=== PATIENT | female | born 1965 | race Caucasian/White ===

== ENCOUNTER → 2017-05-25 | Outpatient (CLI) | payer MEDICARE, OTHER ==
--- NOTE | 2017-05-25 18:40 | CONS ---
CONSULTATION DATE OF SERVICE: 05/25/2017 HISTORY: This 52-year-old lady has been re-evaluated in the sleep center for obstructive sleep apnea-hypopnea syndrome. HISTORY OF PRESENT ILLNESS/SLEEP WAKE EVALUATION: Last time I saw the patient was more than 3 years ago. At that time, she was on treatment with BiPAP with a pressure of 12/8 cm of water and she continued to use her treatment every night. Her sleep schedule is in the range from midnight until about 5:45 a.m. No snoring with the machine. She wakes 3 times with nocturia. During the day sometimes she feels sleepy and tired. [place] Sleepiness Scale is 13. Her weight is about the same, 253 pounds, comparing with her weight in 2013 when I saw her last time. I checked her CPAP unit and it showed that she is using equipment 30/30 nights with a average usage is 6.6 hours. Subsequently, she demonstrated 100% compliance with the treatment. PAST MEDICAL HISTORY: Positive for asthma, arthritis, low back pain, right leg sciatic nerve problems. PAST SURGICAL HISTORY: in 2001. MEDICATIONS: Spiriva, hydrocodone, ibuprofen. SOCIAL HISTORY: Positive for smoking less than 1 pack a day for 38 years, patient continues to smoke. Alcohol consumption none at all in her life. REVIEW OF SYSTEMS: Nocturia, sometimes tiredness and sleepiness during the day. FAMILY HISTORY: Hypertension, hyperlipidemia, arthritis, asthma, bronchitis, lung problems, sleep apnea, snoring, diabetes, during sleep. PHYSICAL EXAMINATION: GENERAL: A 62-year-old lady without distress. VITAL SIGNS: BP 131/55, HR 90, RR 16, height 5 feet and 0 inches, weight 253, BMI 49.4. Neck 18-3/4 inch in circumference. Temp 98.4. Oxygen saturation at room air 91%. Oropharynx extremely low position of soft palate. ABDOMEN: Obese. EXTREMITIES: Very minimal, up to 1+ ankle edema. The rest of the physical is normal. IMPRESSION: 1. Obstructive sleep apnea-hypopnea syndrome. Patient demonstrated 100% compliance with treatment, benefitting from treatment. 2. Nocturia. 3. Sometimes slight excessive daytime sleepiness. 4. Obesity. No significant changes of weight for the last 4 years. 5. Asthma. 6. Low back pain. 7. Sciatic nerve problem on right leg. 8. History of arthritis. PLAN: 1. Continue treatment with BiPAP presently with a pressure of 12/8 cm of water, every night for the whole night as the patient is doing now. 2. Losing weight. 3. Smoking cessation program. 4. No driving if feeling sleepiness. 5. We will consider to replace the patient's BiPAP unit, after 5 years of usage of machine we will check if it is available because I cannot get information from the machine about the patient's breathing during the sleep and with a new unit I should be able to get all of this information. 6. Prescription for all necessary BiPAP supplies, including mask, tube, filters. 7. No driving if feeling sleepiness. Thank you very much for allowing me to participate in management of your patient. Sincerely, Omar Kang MD, PhD, FAASM Diplomat of [place] Board of Medical Specialties [place] Board of Internal Medicine Chronic Disease Epidemiologist of [facility] [place] MMODL / SUYAPAN: [id number] /
== END | disposition home or self-care (01) ==

== ENCOUNTER → 2018-10-03 | Outpatient (CLI) | payer MEDICARE, OTHER ==
--- NOTE | 2018-10-03 17:43 | PN ---
PROGRESS NOTE DATE OF SERVICE: 10/03/2018 53-year-old lady who has been followed in Sleep Center for treatment of obstructive sleep apnea-hypopnea syndrome. The patient continued to use her BiPAP equipment every night for the whole night. Sometimes her machine stopped working at night and she has to restart it again and she is scared that machine will not work. No snoring with the machine. Her [place] Sleepiness Scale today is 12. I checked her BiPAP unit. Usage is 30/30 nights for more than 4 hours. Average usage is 7.3 hours. BiPAP pressure is 12/8 cm of water. Machine does not have information about apnea-hypopnea index. MEDICATIONS: Spiriva and Ventolin, hydrocodone, ibuprofen. PHYSICAL EXAM: Patient in no distress, BP 135/72, HR 84, RR 16, height 5 feet, weight 249 pounds. Body mass index 48.6, temperature 97.5, oxygen saturation at room air 98%. HEENT: PERRLA, EOMI. Oropharynx extremely low position of soft palate. ABDOMEN: Obese. Neck Supple, no JVD. Thyroid is not palpable. LUNGS Clear to percussion and to auscultation. Good air exchange. No wheezing or rhonchi. HEART S1, S2 regular. No murmurs, gallops, or rubs. ABDOMEN: Obese. Soft and nontender. Bowel sounds are present. No organomegaly appreciated. EXTREMITIES No clubbing or cyanosis. FORENSIC CHEMIST Awake, alert, and oriented X3. Cranial nerves 2 to 7 intact. There is no fasciculation or atrophy. noted. No focal deficits observed. IMPRESSION: 1. Obstructive sleep apnea-hypopnea syndrome. Patient demonstrated 100% compliance with treatment, benefitting from treatment. 2. CPAP unit is old, sometimes stops working at night. 3. Asthma. 4. Obesity. 5. Low back problems. 6. Sciatic nerve problem on the right leg. 7. Arthritis. PLAN: 1. Prescription to replace BiPAP unit. 2. Losing weight. 3. Sleep hygiene with regular time in bed for at least 8 hours. 4. No driving if feeling any sleepiness. 5. Will maintain prescription for all necessary BiPAP supplies including nasal mask, Mirage FX small and tube filters. Thank you very much for allowing me to participate in management of your patient. Sincerely, Omar Kang MD, PhD, FAASM Diplomat of [place] [employer] Medical Specialties [place] Board of Internal Medicine Blood Bank Worker of [facility] [place] MMODL / SUYAPAN: [id number] /
== END ==
LOC: SLEEP 15:32
PROVIDERS: ATTEND Internal Medicine
DX: G47.33 Obstructive sleep apnea (adult) (pediatric) (principal); J45.909 Unspecified asthma, uncomplicated; E66.9 Obesity, unspecified; M54.89 Other dorsalgia; M19.90 Unspecified osteoarthritis, unspecified site; Z99.89 Dependence on other enabling machines and devices; Z79.899 Other long term (current) drug therapy; Z79.891 Long term (current) use of opiate analgesic; Z79.1 Long term (current) use of non-steroidal anti-inflammatories (NSAID)

== ENCOUNTER → 2020-09-17 | Outpatient (CLI) | payer MEDICARE, OTHER ==
--- NOTE | 2020-09-17 22:38 | SFUN ---
SLEEP CENTER FOLLOW UP NOTE DATE OF SERVICE: 09/17/2020 A 55-year-old lady has been followed in Sleep Center with a telemedicine for treatment of obstructive sleep apnea-hypopnea syndrome. Recently, patient had a home sleep apnea test which showed severe sleep apnea with apnea-hypopnea index 77.4, and oxygen desaturation to 73%, and then patient received her BiPAP equipment and today is his first visit after she started treatment with new BiPAP machine. The patient likes her new machine. She is using it every night and the only problem which she has is slightly too high level of humidity. She feels too much water in the mask. [place] Sleepiness Scale today is zero. I checked reading from her BiPAP machine. BiPAP pressure 12/8 cm of water. Patient using BiPAP equipment 100% of the nights, more than 4 hours. Average usage 8 hours 22 minutes. Apnea-hypopnea index 0.4, which is perfect, 95%. Leak is 8.5, which is normal range. MEDICATIONS: Spiriva, Ventolin, ibuprofen. I observed the patient through the video call. The patient speaks well. No asymmetry of the face. IMPRESSION: 1. Severe obstructive sleep apnea-hypopnea syndrome; apnea-hypopnea index 77.4 with oxygen desaturation to 73%. The patient demonstrated 100% compliance with treatment benefitting from treatment. 2. Obesity. 3. Asthma. 4. Low back problems. 5. Sciatic nerve problems in the right leg. PLAN: 1. Patient will continue to use PAP equipment every night for the whole night. 2. Sleep hygiene with regular time in bed for at least 7-1/2 to 8 hours. 3. Precautions related to driving. No driving if feeling sleepiness. 4. I will maintain all necessary prescription for PAP supplies including mask, tube, filters. 5. Watching weight. 6. No driving if feeling sleepiness. 7. Follow-up visit in 6 months or earlier if patient has any problems. Thank you very much for allowing me to participate in management of your patient. Sincerely, Omar Kang MD, PhD, FAASM Diplomat of [place] [employer] of Medical Specialties [place] Board of Internal Medicine Director Of Operations For Therapy of [facility] [place] MMODL / SUYAPAN: [id number] /
== END | disposition home or self-care (01) ==
LOC: SLEEP 14:36
PROVIDERS: ATTEND Internal Medicine
DX: G47.33 Obstructive sleep apnea (adult) (pediatric) (principal); E66.9 Obesity, unspecified; J45.909 Unspecified asthma, uncomplicated; M53.9 Dorsopathy, unspecified; M54.31 Sciatica, right side; Z99.89 Dependence on other enabling machines and devices; Z79.891 Long term (current) use of opiate analgesic; Z79.899 Other long term (current) drug therapy

== ENCOUNTER → 2020-12-21 | Outpatient (CLI) | payer MEDICARE, OTHER ==
--- NOTE | 2020-12-21 10:57 | US ---
EXAMINATION TYPE: US pelvic complete DATE OF EXAM: 12/21/2020 COMPARISON: NONE CLINICAL HISTORY: R10.2 female pelvic pain. Pain patient refused transvaginal exam. Limitations due t o body habitus. TECHNIQUE: Transabdominal (TA). EXAM MEASUREMENTS: Uterus: 11.4 x 5.9 x 6.5 cm Endometrial Stripe: Not well visualized 1. Uterus: Anteverted Limited 2. Endometrium: Not well visualized. 3. Right Ovary: Obscured by overlying bowel gas 4. Left Ovary: Obscured by overlying bowel gas 5. Bilateral Adnexa: wnl 6. Posterior cul-de-sac: wnl IMPRESSION: No significant abnormality is seen
== END | disposition home or self-care (01) ==
LOC: RADUSWWP 10:09
PROVIDERS: ATTEND Family Medicine
DX: R10.2 Pelvic and perineal pain (principal)
CPT/HCPCS: 76856

== ENCOUNTER → 2022-04-27 | Outpatient (CLI) | payer MEDICARE, OTHER ==
--- NOTE | 2022-04-27 11:22 | P.PN ---
Subjective DATE: 0 04/27 2022 FOLLOW UP VISIT. Patient with obstructive sleep apnea hypopnea syndrome return to sleep center for follow-up visit. Previous visit about 1-1/2 year ago. Information from previous visit have been reviewed. Patient is using PAP equipment every night for the whole night, getting PAP supplies in time. The patient does not have significant problems with the mask, PAP unit and humidification. [place] sleepiness scale is 6. I checked BIPAP unit. Air filter needs to be changed immediately. BIPAP unit pressure 12/8 cm H2O. Usage is 100 % for more then 4 hours, average 8.2 hours per night. Leak is 6 l/m, which is in acceptable range. Apnea Hypopnea Index is 0.1, which is perfect. MEDICATIONS:1. Hydrocodone 2. Spiriva 3. Ventolin 4. Ibuprofen 5. Loteprednol During physical exam: GENERAL: A pleasant patient without any distress. VITAL SIGNS: BP 187/84, HR 99, RR 18 , weight 363.2, temperature 97.4, oxygen saturation at room air 84 % . HEENT: PERRLA, EOMI.low position of soft palate. . NECK: Supple. No JVD. LUNGS: Clear to percussion and to auscultation. Good air exchange. No wheezing or rhonchi. HEART: S1, S2 regular. ABDOMEN: Soft and nontender. Obese EXTREMITIES: No clubbing or cyanosis. ENGINEERING ASSOCIATE: Awake, alert, and oriented x3. No focal deficit. Impressions: 1. Obstructive sleep apnea-hypopnea syndrome. Patient demonstrated great compliance with treatment, benefiting from treatment. 2. Obesity. 3. Asthma. 4. Low back problems. 5. History of sciatic nerve problems on the right side. Plan: 1. Continue using PAP equipment every night for the whole night. 2. To change air filter at least 1-2 times per month. 3. PAP unit should stay lower then position of the head. 4. Advised patient to remove all remaining water from humidifier canister daily and make it dry after each usage. Refill canister with fresh distilled water before each usage. 5. Sleep hygiene with regular time in bed for at least 8 hours. 6. Precautions related to driving. No driving if feel any sleepiness. 7. I will maintain prescription for PAP supplies including mask, tube, filters. 8. Follow up visit in 6 months or earlier if patient has any problems. 9. Watching and losing weight. Thank you very much for allowing me to participate in the management of your patient. Omar Kagn MD, PhD, FAASM. Diplomat of [place] Board of Sleep Medicine, Sleep Medicine Board by [place] Board of Internal Medicine Machine Operators of [facility] [place]
== END ==
LOC: SLEEP 10:47
PROVIDERS: ATTEND Internal Medicine
DX: G47.33 Obstructive sleep apnea (adult) (pediatric) (principal); E66.9 Obesity, unspecified; J45.909 Unspecified asthma, uncomplicated; M53.86 Other specified dorsopathies, lumbar region; Z87.39 Personal history of other diseases of the musculoskeletal system and connective tissue; Z99.89 Dependence on other enabling machines and devices
CPT/HCPCS: 99212

== ENCOUNTER 2024-01-19 12:03 | Inpatient (IN) | payer MEDICARE, OTHER ==
--- NOTE | 2024-01-19 12:56 | ED ---
General Adult HPI - General Chief complaint: Shortness of Breath Stated complaint: SEBASTIAN,throat pain Time Seen by Provider: 01/19/24 12:31 Source: patient Mode of arrival: ambulatory Limitations: no limitations - History of Present Illness Initial comments: Dictation was produced using [employer] dictation software. please excuse any grammatical, word or spelling errors. Chief Complaint: 58-year-old female with COPD presents to the ER for hypoxia History of Present Illness: Patient is a 58-year-old female presents to the ER for hypoxia. She was at her primary care physician's office for a few days of left ear pain and throat pain. Patient states that she was seen there and found to be hypoxic. Patient denies any shortness of breath. Patient has chronic COPD she does not wear home oxygen. She feels like her breathing is normal baseline. Denies any fever, chills or night sweats. No cough. The ROS documented in this emergency department record has been reviewed and confirmed by me. Those systems with pertinent positive or negative responses have been documented in the HPI. All other systems are other negative and/or noncontributory. - Related Data Home Medications Medication Instructions Recorded Confirmed Albuterol Sulfate [Albuterol 2 puff PO RT-Q6H PRN 01/19/24 01/19/24 Sulfate Hfa] Bisoprolol-Hctz 5-6.25 mg [Ziac 1 tab PO DAILY 01/19/24 01/19/24 5-6.25 MG] Budesonide/Glycopyr/Formoterol 2 puff INHALATION RT-BID 01/19/24 01/19/24 [Breztri Aerosphere Inhaler] HYDROcodone/APAP 7.5-325MG [[place] 1 tab PO TID 01/19/24 01/19/24 7.5-325] Ibuprofen [Motrin] 800 mg PO TID PRN 01/19/24 01/19/24 Rosuvastatin [Crestor] 10 mg PO HS 01/19/24 01/19/24 Allergies Allergy/AdvReac Type Severity Reaction Status Date / Time No Known Allergies Allergy Verified 01/19/24 13:27 Review of Systems ROS Statement: Those systems with pertinent positive or pertinent negative responses have been documented in the HPI. ROS Other: All systems not noted in ROS Statement are negative. Past Medical History Past Medical History: COPD History of Any Multi-Drug Resistant Organisms: None Reported Past Surgical History: No Surgical Hx Reported Past Psychological History: No Psychological Hx Reported Smoking Status: Current every day smoker Past Alcohol Use History: None Reported Past Drug Use History: None Reported, Marijuana General Exam - General Exam Comments Initial Comments: PHYSICAL EXAM: General Impression: Alert and oriented x3, not in acute distress HEENT: Normocephalic atraumatic, extra-ocular movements intact, pupils equal and reactive to light bilaterally, mucous membranes moist, left middle ear effusion, shallow-based ulcers to the posterior oropharynx with erythema Cardiovascular: Heart regular rate and rhythm Chest: Able to complete full sentences, no retractions, no tachypnea Abdomen: abdomen soft, non-tender, non-distended, no organomegaly Musculoskeletal: Pulses present and equal in all extremities, no peripheral edema Motor: no focal deficits noted Neurological: CN II-XII grossly intact, no focal motor or sensory deficits noted Skin: Intact with no visualized rashes Psych: Normal affect and mood Limitations: no limitations Course Vital Signs 01/19/24 01/19/24 01/19/24 12:25 12:44 12:48 Temperature 99.4 F Pulse Rate 80 82 Respiratory 22 20 20 Rate Blood Pressure 156/70 167/98 O2 Sat by Pulse 84 L 92 L Oximetry 01/19/24 01/19/24 14:00 15:44 Temperature Pulse Rate 74 73 Respiratory 18 18 Rate Blood Pressure 150/78 151/85 O2 Sat by Pulse 95 96 Oximetry EKG Findings - EKG Comments: EKG Findings:: My EKG interpretation: Ventricular rate 76, sinus rhythm,. 187, cures 91, QTc 410. No DC prolongation, no QTC prolongation. No old EKG for comparison. There does appear to be T wave inversions in inferior leads and anterior septal leads Medical Decision Making - Medical Decision Making Was pt. sent in by a medical professional or institution (, PA, ORTHOPEDIC DENTIST, urgent care, hospital, or penitentiary...) When possible be specific @ -Sent in from primary care physician's office Did you speak to anyone other than the patient for history (EMS, parent, family, police, friend...)? What history was obtained from this source @ -No Did you review nursing and triage notes (agree or disagree)? Why? @ -I reviewed and agree with nursing and triage notes Were old charts reviewed (outside hosp., previous admission, EMS record, old EKG, old radiological studies, urgent care reports/EKG's, penitentiary records)? Report findings @ -No old charts were reviewed Differential Diagnosis (chest pain, altered mental status, abdominal pain women, abdominal pain men, vaginal bleeding, musculoskeletal, weakness, fever, dyspnea , syncope, headache, dizziness, GI bleed, back pain, seizure, CVA, palpatations, mental health)? @ -Differential Dyspnea: Coronary syndrome, arrhythmia, tamponade, asthma, COPD, pulmonary embolism, pneumonia, pneumothorax, pulmonary effusion, anaphylaxis, diabetic ketoacidosis, flailed chest, pulmonary contusion, diaphragmatic rupture, anemia, neuromuscular, this is not meant to be an all-inclusive list. EKG interpreted by me (3pts min.). @ -See above X-rays interpreted by me (1pt min.). @ -Two-view chest x-ray shows no acute processes CT interpreted by me (1pt min.). @ -None done U/S interpreted by me (1pt. min.). @ -None done What testing was considered but not performed or refused? (CT, X-rays, U/S, labs)? Why? @ -None What meds were considered but not given or refused? Why? @ -None Did you discuss the management of the patient with other professionals (professionals i.e. , PA, ORTHOPEDIC DENTIST, lab, RT, psych nurse, health and social care teacher, yard coordinator, teacher, certification officer, family preservation caseworker)? Give summary @ -Case discussed with hospitalist for admission Was smoking cessation discussed for >3mins.? @ -No Was critical care preformed (if so, how long)? @ -No Were there social determinants of health that impacted care today? How? (Homelessness, low income, unemployed, alcoholism, drug addiction, transportation, low edu. Level, literacy, decrease access to med. care, detention, rehab)? @ -No Was there de-escalation of care discussed even if they declined (Discuss DNR or withdrawal of care, Hospice)? DNR status @ -No What co-morbidities impacted this encounter? (DM, HTN, Smoking, COPD, CAD, Cancer, CVA, ARF, Chemo, Hep., AIDS, mental health diagnosis, sleep apnea, morbid obesity)? @ -None Was patient admitted / discharged? Hospital course, mention meds given and route, prescriptions, significant lab abnormalities, going to OR and other pertinent info. @ -58-year-old female presents to the emergency department from primary care physician's office for hypoxic respiratory failure. She initially presented there for ear and throat complaints. Patient has otitis media to the left ear. She does have some shallow-based ulcers to the posterior oropharynx likely viral in origin. Labs obtained. Labs are unremarkable. Patient has a nonnegative troponin of 0.015. This may be related to her hypoxia. Viral testing is negative. Rapid strep is negative. Chest x-ray is nonacute. P atient be admitted consultation pulmonology. Undiagnosed new problem with uncertain prognosis? @ -No Drug Therapy requiring intensive monitoring for toxicity (Heparin, Nitro, Insulin, Cardizem)? @ -No Were any procedures done? @ -No Diagnosis/symptom? Acute, or Chronic, or Acute on Chronic? Uncomplicated (without systemic symptoms) or Complicated (systemic symptoms)? @ -Hypoxia Side effects of treatment? @ -No Exacerbation, Progression, or Severe Exacerbation? @ -No Poses a threat to life or bodily function? How? (Chest pain, [place], [place], pneumonia, PE, COPD, DKA, ARF, appy, cholecystitis, CVA, Diverticulitis, Homicidal, Suicidal, threat to staff... and all critical care pts) @ -yes - Lab Data Result diagrams: 01/19/24 12:56 01/19/24 13:52 Lab Results 01/19/24 01/19/24 01/19/24 Range/Units 12:56 12:56 12:56 WBC 9.2 (3.8-10.6) k/uL RBC 5.20 (3.80-5.40) m/uL Hgb 17.1 H (11.4-16.0) gm/dL Hct 52.3 H (34.0-46.0) % MCV 100.6 H (80.0-100.0) fL MCH 33.0 (25.0-35.0) pg MCHC 32.8 (31.0-37.0) g/dL RDW 12.8 (11.5-15.5) % Plt Count 163 (150-450) k/uL MPV 8.5 Neutrophils % 81 % Lymphocytes % 11 % Monocytes % 5 % Eosinophils % 1 % Basophils % 1 % Neutrophils # 7.5 (1.3-7.7) k/uL Lymphocytes # 1.0 (1.0-4.8) k/uL Monocytes # 0.4 (0-1.0) k/uL Eosinophils # 0.1 (0-0.7) k/uL Basophils # 0.1 (0-0.2) k/uL Manual Slide Review Performed RBC Morphology Normal D-Dimer (<0.60) mg/L FEU Sodium (137-145) mmol/L Potassium (3.5-5.1) mmol/L Chloride (98-107) mmol/L Carbon Dioxide (22-30) mmol/L Anion Gap mmol/L BUN (7-17) mg/dL Creatinine (0.52-1.04) mg/dL Est GFR (CKD-EPI)AfAm (>60 ml/min/1.73 sqM) Est GFR (CKD-EPI)NonAf (>60 ml/min/1.73 sqM) Glucose (74-99) mg/dL Calcium (8.4-10.2) mg/dL Total Bilirubin (0.2-1.3) mg/dL AST (14-36) U/L ALT (4-34) U/L Alkaline Phosphatase (38-126) U/L Troponin I (0.000-0.034) ng/mL Total Protein (6.3-8.2) g/dL Albumin (3.5-5.0) g/dL Influenza Type A (PCR) Not Detected (Not Detectd) Influenza Type B (PCR) Not Detected (Not Detectd) RSV (PCR) Not Detected (Not Detectd) SARS-CoV-2 (PCR) Not Detected (Not Detectd) Group A Strep (PCR) NOT DETECTED (Not Detectd) 01/19/24 01/19/24 01/19/24 Range/Units 13:52 13:52 13:52 WBC (3.8-10.6) k/uL RBC (3.80-5.40) m/uL Hgb (11.4-16.0) gm/dL Hct (34.0-46.0) % MCV (80.0-100.0) fL MCH (25.0-35.0) pg MCHC (31.0-37.0) g/dL RDW (11.5-15.5) % Plt Count (150-450) k/uL MPV Neutrophils % % Lymphocytes % % Monocytes % % Eosinophils % % Basophils % % Neutrophils # (1.3-7.7) k/uL Lymphocytes # (1.0-4.8) k/uL Monocytes # (0-1.0) k/uL Eosinophils # (0-0.7) k/uL Basophils # (0-0.2) k/uL Manual Slide Review RBC Morphology D-Dimer 0.55 (<0.60) mg/L FEU Sodium 133 L (137-145) mmol/L Potassium 4.3 (3.5-5.1) mmol/L Chloride 99 (98-107) mmol/L Carbon Dioxide 30 (22-30) mmol/L Anion Gap 4 mmol/L BUN 15 (7-17) mg/dL Creatinine 0.53 (0.52-1.04) mg/dL Est GFR (CKD-EPI)AfAm >90 (>60 ml/min/1.73 sqM) Est GFR (CKD-EPI)NonAf >90 (>60 ml/min/1.73 sqM) Glucose 113 H (74-99) mg/dL Calcium 8.9 (8.4-10.2) mg/dL Total Bilirubin 1.3 (0.2-1.3) mg/dL AST 19 (14-36) U/L ALT 8 (4-34) U/L Alkaline Phosphatase 98 (38-126) U/L Troponin I 0.015 (0.000-0.034) ng/mL Total Protein 7.0 (6.3-8.2) g/dL Albumin 3.9 (3.5-5.0) g/dL Influenza Type A (PCR) (Not Detectd) Influenza Type B (PCR) (Not Detectd) RSV (PCR) (Not Detectd) SARS-CoV-2 (PCR) (Not Detectd) Group A Strep (PCR) (Not Detectd) Disposition Clinical Impression: Hypoxia Disposition: ADMITTED IP TO THIS [facility] Condition: Fair Referrals: Edward Reddy MD [Primary Care Provider] - 1-2 days Decision Time: 15:59
[2024-01-19 13:44] LABS: Basophils # (A) 0.1 k/uL (0-0.2); Basophils % (A) 1 %; Eosinophils # (A) 0.1 k/uL (0-0.7); Eosinophils % (A) 1 %; HCT 52.3 % (34.0-46.0); HGB 17.1 gm/dL (11.4-16.0); Lymphocytes % (A) 11 %; MCHC 32.8 g/dL (31.0-37.0); MCV 100.6 fL (80.0-100.0); Mean Platelet Volume 8.5; Monocytes # (A) 0.4 k/uL (0-1.0); Monocytes % (A) 5 %; Neutrophils # (A) 7.5 k/uL (1.3-7.7); Neutrophils % (A) 81 %; Platelet Count 163 k/uL (150-450); RDW 12.8 % (11.5-15.5); WBC 9.2 k/uL (3.8-10.6)
[2024-01-19] MEDS: AZITHROMYCIN 500 MG in SODIUM CHLORIDE 0.9% 250 ML IVPB STA ×2 (13:52→14:19)
[2024-01-19 14:08] LABS: RBC Morphology Normal
[2024-01-19 14:13] LABS: ALT 8 U/L (4-34); AST 19 U/L (14-36); African American GFR (CKD) >90 (>60 ml/min/1.73 sqM); Albumin 3.9 g/dL (3.5-5.0); Alkaline Phosphatase 98 U/L (38-126); Anion Gap 4 mmol/L; Blood Urea Nitrogen 15 mg/dL (7-17); Calcium 8.9 mg/dL (8.4-10.2); Carbon Dioxide 30 mmol/L (22-30); Chloride 99 mmol/L (98-107); Glucose 113 mg/dL (74-99); Non-African American GFR(CKD) >90 (>60 ml/min/1.73 sqM); Potassium 4.3 mmol/L (3.5-5.1); Sodium 133 mmol/L (137-145); Total Bilirubin 1.3 mg/dL (0.2-1.3)
[2024-01-19] MEDS: cefTRIAXone IN SWFI 1,000 MG/10 ML SYRINGE IVP STA (14:19)
[2024-01-19] MEDS: AZITHROMYCIN 500 MG TAB PO STA (14:19)
--- NOTE | 2024-01-19 14:53 | XR ---
EXAMINATION TYPE: XR chest 2V DATE OF EXAM: 01/19/2024 COMPARISON: None INDICATION: Hypoxia TECHNIQUE: Frontal and lateral views of the chest are obtained. FINDINGS: The heart size is enlarged. The pulmonary vasculature is normal. The lungs are clear. IMPRESSION: 1. No acute pulmonary process.
[2024-01-19] MEDS: MAG HYDROX/AL HYDROX/SIMETH 30 ML, HYOSCYAMINE ELIXIR 10 ML, LIDOCAINE VISCOUS 2% 10 ML PO STA (15:55)
[2024-01-19] MEDS ORDERED: IPRATROPIUM-ALBUTEROL 3 ML NEB INHALATION PRN (17:28)
[2024-01-19] MEDS ORDERED: DEXTROSE 50% SYRINGE 50 ML IVP PRN ×2 (17:29)
[2024-01-19] MEDS: INSULIN ASPART (NovoLOG) 100 UNIT/ML VIAL SQ SCH (18:28)
[2024-01-19 18:29] LABS: Glucose,Whole Blood 117 mg/dL (70-110)
[2024-01-19] MEDS: methylPREDNISolone SOD SUCCI 125 MG/2 ML VIAL IV SCH (18:43)
[2024-01-19] MEDS: SYMBICORT 160-4.5 MCG INHALER INHALATION SCH (20:02)
[2024-01-19] MEDS: IPRATROPIUM-ALBUTEROL 3 ML NEB INHALATION SCH (20:02)
[2024-01-19 21:05] LABS: Glucose,Whole Blood 143 mg/dL (70-110)
[2024-01-19] MEDS: ATORVASTATIN 20 MG TAB PO SCH (21:35)
[2024-01-19] MEDS: HYDROcodone/APAP 7.5-325MG 1 EACH TAB PO SCH (21:35)
[2024-01-19] MEDS: HEPARIN SODIUM,PORCINE 5,000 UNIT/ML 1 ML VIAL SQ SCH (21:36)
--- NOTE | 2024-01-19 23:45 | HP ---
HISTORY AND PHYSICAL CHIEF COMPLAINT: Shortness of breath. HISTORY OF PRESENT ILLNESS: This 58-year-old woman with past medical history of multiple medical problems including COPD, being followed by Dr. Reddy in the outpatient, was admitted with severe shortness of breath as well as hypoxia. The patient has some left ear pain and throat pain, and the patient was found to be hypoxic in primary care physician's office and referred to [facility]. The evaluation showed pulse ox 84% on room air, and the patient was admitted for further evaluation and treatment. There is no history of any fever, rigors, or chills at this time. PAST MEDICAL HISTORY: Reviewed include COPD, rest of the history and rest of the chart is also reviewed. HOME MEDICATIONS: Reviewed include albuterol, doses and rest of medications noted. ALLERGIES: None. FAMILY HISTORY: No history of heart disease or strokes in the family. SOCIAL HISTORY: Current smoking, THC. REVIEW OF SYSTEMS: A 14-point review is negative except as mentioned earlier. PHYSICAL EXAMINATION: VITAL SIGNS: Pulse is 74, blood pressure 150/70, respirations 18. HEENT: Conjunctivae normal. NECK: No jugular venous distention. CARDIOVASCULAR: S1, S2. RESPIRATIONS: Diminished at the bases, scattered rhonchi and crackles. ABDOMEN: Soft, nontender. LEGS: No edema. No swelling. NERVOUS SYSTEM: No focal deficit. SKIN: No ulcer, rash, bleeding. JOINTS: No active deforming arthropathy. LABORATORY DATA: Noted. Troponins are normal. Sodium 133. D-dimer is also normal. ASSESSMENT: 1. Shortness of breath with COPD acute exacerbation with acute hypoxic respiratory failure. 2. Possible obesity hypoventilation syndrome. 3. Continued nicotine dependence. 4. History of THC. 5. Polycythemia, mild. 6. Hyponatremia. RECOMMENDATIONS AND DISCUSSION: This 58-year-old woman admitted with multiple complex medical issues, we will monitor the patient closely. Recommended empiric antibiotics as well as pulmonary consultation, intensive bronchodilators, steroids, resume the home medications once they are confirmed. Prognosis is guarded because of multiple complex medical issues. Further recommendations to follow, see orders for further details. MMODL / IJN: [id number] /
[2024-01-20] MEDS: PANTOPRAZOLE 40 MG TABLET PO SCH (05:46)
[2024-01-20 06:31] LABS: Glucose,Whole Blood 154 mg/dL (70-110)
[2024-01-20] MEDS: BISOPROLOL-HCTZ 5-6.25 MG 1 EACH TAB PO SCH (09:14)
[2024-01-20] MEDS: NICOTINE 14MG/24HR PATCH TRANSDERM SCH (09:14)
[2024-01-20] MEDS: AZITHROMYCIN 500 MG TAB PO SCH (09:14)
[2024-01-20 10:34] LABS: Chol/HDL Ratio 5.07 Ratio; LDL Cholesterol,Calculated 93.2 mg/dL (0.0-131.0)
[2024-01-20] MEDS: cefTRIAXone 1,000 MG VIAL (IM USE) IM SCH (11:30)
[2024-01-20 11:37] LABS: Glucose,Whole Blood 168 mg/dL (70-110)
--- NOTE | 2024-01-20 14:16 | PN ---
PROGRESS NOTE DATE OF SERVICE: 01/20/2024 SUBJECTIVE: This is a 58-year-old woman, who was admitted with COPD acute exacerbation with acute hypoxic respiratory failure, is being closely monitored. No chest pain. No palpitations. No fever. Oxygenation is improving. OBJECTIVE: VITAL SIGNS: Pulse is 81, blood pressure 119/60, and respirations 16. CHEST: Few scattered rhonchi. ABDOMEN: Soft. NERVOUS SYSTEM: Nonfocal. LABORATORY DATA: Noted. ASSESSMENT: 1. Chronic obstructive pulmonary disease acute exacerbation with acute hypoxic respiratory failure. 2. Possible obesity hypoventilation syndrome. 3. Normal D-dimer. 4. Continued nicotine dependence. 5. History of THC. 6. Mild polycythemia. 7. Hyponatremia. RECOMMENDATIONS: Recommend to continue current medical management and symptomatic treatment. Otherwise, at this time, I would recommend continue the bronchodilators, steroids, and empiric antibiotics. Pulmonary consultation. Repeat labs will be ordered in the morning. Prognosis guarded. Further condition to follow. MMODL / IJN: [id number] /
--- NOTE | 2024-01-20 14:39 | P.CNPUL ---
History of Present Illness Consult date: 01/20/24 Reason for consult: dyspnea History of present illness: 01/20/2024, this patient is being seen in consultation for shortness of breath. She is a morbidly obese 50-year-old female patient with known history of obstructive sleep apnea and the patient is being treated with a BiPAP on outpatient basis at a pressure of 12 over 8 cm of water. She is a chronic smoker and she is also known to have COPD. She is not oxygen dependent. She was diagnosed having obstructive sleep apnea many years back and she has been very compliant to her BiPAP therapy over the years. She has chronic back pain and sciatica. She presented to the hospital because of worsening shortness of breath. No chest pain. Limited cough and sputum production. The viral screen was negative. She was having some left ear pain and drainage and along with that she was having sore throat. That the streptococcal oral swab came back negative. The white cell count is at five 9.2 with a hemoglobin 17 and a platelet count of 164. BUN is at 50 with a creatinine of 0.5 and a sodium levels at 133. Reviewed the chest x-ray and it shows no acute cardiopulmonary process. Currently she is on oxygen 2 L with a pulse ox of 95%. Afebrile. Hemodynamically stable. No headaches. No neck stiffness. She has been maintained on Breztri on outpatient basis regarding her COPD. She also has a nebulizer. No edema lower extremities. No previous history of DVT or pulmonary embolism. Review of Systems Constitutional: Reports daytime sleepiness, Reports weight gain Eyes: denies as per HPI, denies blurred vision, denies bulging eye, denies decreased vision, denies diplopia, denies discharge, denies dry eye, denies irritation, denies itching, denies pain, denies photophobia, denies loss of peripheral vision, denies loss of vision, denies tunnel vision/blind spots Ears: bilateral: ear discharge, earache Ears, nose, mouth and throat: Reports as per HPI, Reports sore throat Breasts: absent: as per HPI, change in shape, gynecomastia, masses, nipple discharge, pain, skin changes, swelling Breasts: Reports as per HPI Cardiovascular: Reports as per HPI, Reports decreased exercise tolerance, Reports dyspnea on exertion Respiratory: Reports as per HPI, Reports cough with sputum, Reports dyspnea, Reports sleep apnea Gastrointestinal: Reports as per HPI Genitourinary: Reports as per HPI Menstruation: Reports as per HPI Musculoskeletal: Reports as per HPI Musculoskeletal: absent: ankle pain, ankle stiffness, ankle swelling Integumentary: Reports as per HPI Neurological: Reports as per HPI Psychiatric: Reports as per HPI Endocrine: Reports as per HPI Hematologic/Lymphatic: Reports as per HPI Allergic/Immunologic: Reports as per HPI Past Medical History Past Medical History: COPD, Hyperlipidemia, Hypertension, Sleep Apnea/CPAP/BIPAP History of Any Multi-Drug Resistant Organisms: None Reported Past Surgical History: No Surgical Hx Reported Past Psychological History: No Psychological Hx Reported Smoking Status: Current every day smoker Past Alcohol Use History: None Reported Past Drug Use History: None Reported, Marijuana Medications and Allergies Home Medications Medication Instructions Recorded Confirmed Type Albuterol Sulfate [Albuterol 2 puff PO RT-Q6H PRN 01/19/24 01/19/24 History Sulfate Hfa] Bisoprolol-Hctz 5-6.25 mg [Ziac 1 tab PO DAILY 01/19/24 01/19/24 History 5-6.25 MG] Budesonide/Glycopyr/Formoterol 2 puff INHALATION RT-BID 01/19/24 01/19/24 History [Breztri Aerosphere Inhaler] HYDROcodone/APAP 7.5-325MG [[place] 1 tab PO TID 01/19/24 01/19/24 History 7.5-325] Ibuprofen [Motrin] 800 mg PO TID PRN 01/19/24 01/19/24 History Rosuvastatin [Crestor] 10 mg PO HS 01/19/24 01/19/24 History Allergies Allergy/AdvReac Type Severity Reaction Status Date / Time No Known Allergies Allergy Verified 01/19/24 13:27 Physical Exam Vitals: Vital Signs Temp Pulse Pulse Resp BP BP Pulse Ox 01/20/24 09:11 75 01/20/24 09:04 72 01/20/24 07:09 99.8 F H 81 16 119/69 86 L 01/20/24 02:00 98.7 F 60 15 132/73 95 01/19/24 20:12 74 01/19/24 20:04 72 01/19/24 19:13 99.2 F 76 15 142/77 94 L 01/19/24 18:37 98.8 F 87 18 150/69 93 L 01/19/24 18:06 98.2 F 80 20 151/76 95 01/19/24 15:44 73 18 151/85 96 01/19/24 14:00 74 18 150/78 95 01/19/24 12:48 82 20 167/98 92 L 01/19/24 12:44 20 01/19/24 12:25 99.4 F 80 22 156/70 84 L Intake and Output 01/19/24 01/20/24 01/20/24 22:59 06:59 14:59 Other: # Voids 1 1 Weight 119.295 kg Morbidly obese, calm and comfortable, not in acute respiratory distress, currently on 2 L of oxygen by nasal cannula Head exam was generally normal. There was no scleral icterus or corneal arcus. Mucous membranes were moist. Neck was supple and without jugular venous distension, thyromegaly, or carotid bruits. Carotids were easily palpable bilaterally. There was no adenopathy. Needle examination was not done. Nevertheless, there is some erythematous changes in the posterior oropharynx without any purulence. Lung sounds are diminished bilaterally and the patient has category wheezes throughout the lung [place] Cardiac exam revealed the PMI to be normally situated and sized. The rhythm was regular and no extrasystoles were noted during several minutes of auscultation. The first and second heart sounds were normal and physiologic splitting of the second heart sound was noted. There were no murmurs, rubs, clicks, or gallops. Abdominal exam revealed normal bowel sounds. The abdomen was soft, non-tender, and without masses, organomegaly, or appreciable enlargement of the abdominal aorta. Examination of the extremities revealed easily palpable radial, femoral and pedal pulses. There was no cyanosis, clubbing or edema. Examination of the skin revealed no evidence of significant rashes, suspicious appearing nevi or other concerning lesions. Neurologically, the patient is awake and alert and the patient does not have any focal neurological deficit. Cranial nerves are essentially intact. Results - Laboratory Findings CBC and BMP: 01/19/24 12:56 01/19/24 13:52 PT/INR, D-dimer D-Dimer 0.55 mg/L FEU (<0.60) 01/19/24 13:52 Abnormal lab findings: Abnormal Labs 01/19/24 01/19/24 01/19/24 12:56 13:52 13:52 Hgb 17.1 H Hct 52.3 H MCV 100.6 H Sodium 133 L Glucose 113 H POC Glucose (mg/dL) Hemoglobin A1c HDL Cholesterol 28.20 L 01/19/24 01/19/24 01/19/24 18:28 19:53 21:04 Hgb Hct MCV Sodium Glucose POC Glucose (mg/dL) 117 H 143 H Hemoglobin A1c 6.8 H HDL Cholesterol 01/20/24 06:29 Hgb Hct MCV Sodium Glucose POC Glucose (mg/dL) 154 H Hemoglobin A1c HDL Cholesterol - Diagnostic Findings Chest x-ray: image reviewed Assessment and Plan Plan: Acute COPD exacerbation, could be related to symptoms of upper respiratory tract infection as the patient has symptoms of URI and possible left otitis Shortness of breath secondary to above Acute hypoxic respiratory failure secondary to above currently on 2 L of O2 nasal cannula Morbid obesity Obstructive sleep apnea maintained on a BiPAP pressure of 12/8 cm of water Hypertension Hyperlipidemia Plan Continue Rocephin and Zithromax Continue bronchodilators Continue IV Solu-Medrol Allow the patient to utilize Breztri inhaler 2 puffs twice a day during her hospital stay. Resume home medications Allow the patient to utilize her own BiPAP machine which is at a pressure of 12 over 8 cm of water. The machine was checked and the patient is very compliant and the treatment has been essentially successful and the patient is AHI is down to 1 while on treatment. Smoking cessation counseling Will follow
[2024-01-20 17:54] LABS: Glucose,Whole Blood 144 mg/dL (70-110)
[2024-01-20 20:55] LABS: Glucose,Whole Blood 176 mg/dL (70-110)
[2024-01-21 06:20] LABS: Glucose,Whole Blood 150 mg/dL (70-110)
[2024-01-21 09:30] LABS: Basophils # (A) 0.08 X 10*3/uL (0.00-0.10); Basophils % (A) 0.5 %; Eosinophils # (A) 0.06 X 10*3/uL (0.04-0.35); Eosinophils % (A) 0.4 %; HGB 16.6 g/dL (12.0-15.0); Lymphocytes # (A) 1.15 X 10*3/uL (0.90-5.00); Lymphocytes % (A) 7.2 %; MCH 33.7 pg (27.0-32.0); MCHC 33.9 g/dL (32.0-37.0); MCV 99.4 FL (80.0-97.0); Mean Platelet Volume 10.1 FL (9.5-12.2); Monocytes # (A) 0.53 X 10*3/uL (0.20-1.00); Monocytes % (A) 3.3 %; NRBC Per 100 WBC 0 X 10*3/uL (0.00-0.01); Neutrophils # (A) 14.21 X 10*3/uL (1.80-7.70); Neutrophils % (A) 88.4 %; Platelet Count 166 X 10*3/uL (140-440); RBC 4.93 X 10*6/uL (4.10-5.20); WBC 16.07 X 10*3/uL (4.50-10.00)
[2024-01-21 10:40] LABS: Blood Urea Nitrogen 21.3 mg/dL (9.0-27.0); Calcium 9.3 mg/dL (8.7-10.3); Carbon Dioxide 29.3 mmol/L (21.6-31.8); Chloride 95 mmol/L (96-109); Glucose 157 mg/dL (70-110); Potassium 4.3 mmol/L (3.5-5.5); Sodium 136 mmol/L (135-145)
[2024-01-21 12:05] LABS: Glucose,Whole Blood 141 mg/dL (70-110)
--- NOTE | 2024-01-21 15:11 | P.PN ---
Subjective Progress Note Date: 01/21/24 01/20/2024, this patient is being seen in consultation for shortness of breath. She is a morbidly obese 50-year-old female patient with known history of obstructive sleep apnea and the patient is being treated with a BiPAP on outpatient basis at a pressure of 12 over 8 cm of water. She is a chronic smoker and she is also known to have COPD. She is not oxygen dependent. She was diagnosed having obstructive sleep apnea many years back and she has been very compliant to her BiPAP therapy over the years. She has chronic back pain and sciatica. She presented to the hospital because of worsening shortness of breath. No chest pain. Limited cough and sputum production. The viral screen was negative. She was having some left ear pain and drainage and along with that she was having sore throat. That the streptococcal oral swab came back negative. The white cell count is at five 9.2 with a hemoglobin 17 and a platelet count of 164. BUN is at 50 with a creatinine of 0.5 and a sodium levels at 133. Reviewed the chest x-ray and it shows no acute cardiopulmonary process. Currently she is on oxygen 2 L with a pulse ox of 95%. Afebrile. Hemodynamically stable. No headaches. No neck stiffness. She has been maintained on Breztri on outpatient basis regarding her COPD. She also has a nebulizer. No edema lower extremities. No previous history of DVT or pulmonary embolism. 01/21/2024, patient is doing well. Sore throat has improved. Patient remains on Rocephin and Zithromax. Remains on bronchodilators. Remains on steroids. She is currently on 2 L of O2 with a pulse ox of 96%. White cell count is 16 with a hemoglobin 16 and platelet count of 166. Sodium is at 136 with a BUN of 21 and a creatinine of 0.6 and a potassium level of 4.3. Objective - Vital Signs Vital signs: Vital Signs Temp 98.9 F 01/21/24 07:07 Pulse 64 01/21/24 07:07 Resp 19 01/21/24 07:07 BP 135/69 01/21/24 07:07 Pulse Ox 92 L 01/21/24 07:07 FiO2 Intake & Output 01/20/24 01/21/24 01/21/24 18:59 06:59 18:59 Intake Total 50 236 Balance 50 236 Intake: Intake, IV Titration 50 Amount cefTRIAXone 1 gm In 50 Sodium Chloride 0.9% 50 ml @ 100 mls/hr IVPB Q24HR [facility] Rx#:[id number] Oral 236 Other: # Voids 2 - Exam Morbidly obese, calm and comfortable, not in acute respiratory distress, currently on 2 L of oxygen by nasal cannula Head exam was generally normal. There was no scleral icterus or corneal arcus. Mucous membranes were moist. Neck was supple and without jugular venous distension, thyromegaly, or carotid bruits. Carotids were easily palpable bilaterally. There was no adenopathy. Needle examination was not done. Nevertheless, there is some erythematous changes in the posterior oropharynx without any purulence. Lung sounds are diminished bilaterally and the patient has category wheezes throughout the lung [place] Cardiac exam revealed the PMI to be normally situated and sized. The rhythm was regular and no extrasystoles were noted during several minutes of auscultation. The first and second heart sounds were normal and physiologic splitting of the second heart sound was noted. There were no murmurs, rubs, clicks, or gallops. Abdominal exam revealed normal bowel sounds. The abdomen was soft, non-tender, and without masses, organomegaly, or appreciable enlargement of the abdominal aorta. Examination of the extremities revealed easily palpable radial, femoral and pedal pulses. There was no cyanosis, clubbing or edema. Examination of the skin revealed no evidence of significant rashes, suspicious appearing nevi or other concerning lesions. Neurologically, the patient is awake and alert and the patient does not have any focal neurological deficit. Cranial nerves are essentially intact. - Labs CBC & Chem 7: 01/21/24 06:04 01/21/24 06:04 Labs: Abnormal Lab Results - Last 24 Hours (Table) 01/20/24 01/20/24 01/21/24 Range/Units 17:53 20:54 06:04 WBC 16.07 H (4.50-10.00) X 10*3/uL Hgb 16.6 H (12.0-15.0) g/dL Hct 49.0 H (37.2-46.3) % MCV 99.4 H (80.0-97.0) FL MCH 33.7 H (27.0-32.0) pg Neutrophils # 14.21 H (1.80-7.70) X 10*3/uL Chloride (96-109) mmol/L BUN/Creatinine Ratio (12.00-20.00) Ratio Glucose (70-110) mg/dL POC Glucose (mg/dL) 144 H 176 H (70-110) mg/dL 01/21/24 01/21/24 01/21/24 Range/Units 06:04 06:19 12:03 WBC (4.50-10.00) X 10*3/uL Hgb (12.0-15.0) g/dL Hct (37.2-46.3) % MCV (80.0-97.0) FL MCH (27.0-32.0) pg Neutrophils # (1.80-7.70) X 10*3/uL Chloride 95 L (96-109) mmol/L BUN/Creatinine Ratio 35.50 H (12.00-20.00) Ratio Glucose 157 H (70-110) mg/dL POC Glucose (mg/dL) 150 H 141 H (70-110) mg/dL Assessment and Plan Plan: Acute COPD exacerbation, could be related to symptoms of upper respiratory tract infection as the patient has symptoms of URI and possible left otitis Shortness of breath secondary to above Acute hypoxic respiratory failure secondary to above currently on 2 L of O2 nasal cannula Morbid obesity Obstructive sleep apnea maintained on a BiPAP pressure of 12/8 cm of water Hypertension Hyperlipidemia Plan Clinically improving Continue Rocephin and Zithromax Continue bronchodilators Continue IV Solu-Medrol Allow the patient to utilize Breztri inhaler 2 puffs twice a day during her hospital stay. Resume home medications Allow the patient to utilize her own BiPAP machine which is at a pressure of 12 over 8 cm of water. The machine was checked and the patient is very compliant and the treatment has been essentially successful and the patient is AHI is down to 1 while on treatment. Smoking cessation counseling Will follow
[2024-01-21 17:26] LABS: Glucose,Whole Blood 146 mg/dL (70-110)
[2024-01-21 20:46] LABS: Glucose,Whole Blood 149 mg/dL (70-110)
--- NOTE | 2024-01-22 01:25 | PN ---
PROGRESS NOTE DATE OF SERVICE: 01/21/2024 SUBJECTIVE: This is a 58-year-old woman, who was admitted with COPD acute exacerbation, improved significantly. Dr. Kovacs has seen the patient. Recommend bronchodilators. No chest pain. No palpitation. PHYSICAL EXAMINATION: VITAL SIGNS: Pulse is 64, blood pressure 130/69, and respirations 18. CHEST: Few scattered rhonchi and crackles. ABDOMEN: Soft. NERVOUS SYSTEM: Nonfocal. LABORATORY DATA: Reviewed. ASSESSMENT: 1. Chronic obstructive pulmonary disease acute exacerbation with acute purulent tracheobronchitis with acute hypoxic respiratory failure present on admission. 2. Possible obesity hypoventilation syndrome. 3. Normal D-dimer. 4. Continued nicotine dependence. 5. History of THC. 6. Mild polycythemia. 7. Hyponatremia. RECOMMENDATIONS: Recommend to continue current medical management and symptomatic treatment. Repeat labs. Otherwise continue the bronchodilators. Closely follow with Pulmonary. Further recommendations to follow. MMODL / IJN: [id number] /
[2024-01-22 06:13] LABS: Glucose,Whole Blood 156 mg/dL (70-110)
[2024-01-22 09:21] LABS: Basophils # (A) 0.02 X 10*3/uL (0.00-0.10); Basophils % (A) 0.1 %; Eosinophils # (A) 0 X 10*3/uL (0.04-0.35); Eosinophils % (A) 0 %; HCT 49.5 % (37.2-46.3); HGB 16.6 g/dL (12.0-15.0); Lymphocytes # (A) 0.92 X 10*3/uL (0.90-5.00); Lymphocytes % (A) 5.2 %; MCH 32.7 pg (27.0-32.0); MCHC 33.5 g/dL (32.0-37.0); MCV 97.4 FL (80.0-97.0); Mean Platelet Volume 10.3 FL (9.5-12.2); Monocytes # (A) 0.31 X 10*3/uL (0.20-1.00); Monocytes % (A) 1.8 %; NRBC Per 100 WBC 0 X 10*3/uL (0.00-0.01); Neutrophils # (A) 16.25 X 10*3/uL (1.80-7.70); Neutrophils % (A) 92.6 %; Platelet Count 190 X 10*3/uL (140-440); RBC 5.08 X 10*6/uL (4.10-5.20); RDW 12.8 % (11.5-14.5); WBC 17.55 X 10*3/uL (4.50-10.00)
[2024-01-22 09:36] LABS: BUN/Creat Ratio 37.86 Ratio (12.00-20.00); Blood Urea Nitrogen 26.5 mg/dL (9.0-27.0); Calcium 9.3 mg/dL (8.7-10.3); Carbon Dioxide 33.1 mmol/L (21.6-31.8); Chloride 95 mmol/L (96-109); Glucose 161 mg/dL (70-110); Potassium 4.3 mmol/L (3.5-5.5); Sodium 136 mmol/L (135-145)
[2024-01-22 12:52] LABS: Glucose,Whole Blood 128 mg/dL (70-110)
[2024-01-22] MEDS: NYSTATIN 100,000 UNIT/ML SUSP 500,000 UNIT/5 ML CUP PO SCH (14:49)
[2024-01-22 17:21] LABS: Glucose,Whole Blood 156 mg/dL (70-110)
[2024-01-22] MEDS: methylPREDNISolone SOD SUCCI 125 MG/2 ML VIAL IV SCH (18:26)
[2024-01-22] MEDS: FLUCONAZOLE 100 MG TAB PO SCH (18:41)
[2024-01-22 20:58] LABS: Glucose,Whole Blood 247 mg/dL (70-110)
--- NOTE | 2024-01-23 02:22 | PN ---
PROGRESS NOTE DATE OF SERVICE: 01/22/[address] Reddy. SUBJECTIVE: This -year-old woman admitted with COPD acute exacerbation, is being closely monitored. No chest pain, no palpitations, no fever. OBJECTIVE: VITAL SIGNS: Pulse 74, blood pressure 160/69, respirations 18. CHEST: Few scattered rhonchi and crackles. ABDOMEN: Soft. LEGS: No edema, no swelling. LABS: WBC 17.5, rest of the labs are noted. ASSESSMENT: 1. Chronic obstructive pulmonary disease acute exacerbation with acute purulent tracheobronchitis with acute hypoxic respiratory failure present on admission. 2. Possible obesity hypoventilation syndrome. 3. Normal D-dimer. 4. Continued nicotine dependence. 5. History of THC. 6. Polycythemia. 7. Hyponatremia. RECOMMENDATIONS AND DISCUSSION: Recommended to continue current management, continue symptomatic treatment, repeat labs. Continue steroids. Closely follow with Pulmonary and Dr. Reddy will follow tomorrow. Possible discharge within the next 24 hours. MMODL / IJN: [id number] / [facility]ITALBubba
[2024-01-23 05:41] LABS: Glucose,Whole Blood 182 mg/dL (70-110)
[2024-01-23] MEDS: predniSONE 20 MG TAB PO SCH (08:26)
--- NOTE | 2024-01-23 08:30 | P.PN ---
Subjective Progress Note Date: 01/23/24 This is a 59 year old female who was sent by our office to the ER for evaluation initially because her oxygen saturation was 84% on room air in our office. She is a chronic smoker and has a history of COPD. She is on BiPAP at home. She has been on IV rocephin and IV steroids. Today she will have oral prednisone. It was been documented she was 96% on room air overnight but when patient was seen this morning she was wearing 2L of oxygen. Patient is tolerating diet. Vitals are stable. Still having some wheezing today. . Objective - Vital Signs Vital signs: Vital Signs Temp 98.6 F 01/23/24 02:04 Pulse 78 01/23/24 02:04 Resp 15 01/23/24 02:04 BP 138/76 01/23/24 02:04 Pulse Ox 96 01/23/24 02:04 FiO2 Intake & Output 01/22/24 01/23/24 01/23/24 18:59 06:59 18:59 Intake Total 358 Balance 358 Intake: Oral 358 Other: # Voids 6 1 # Bowel Movements 1 - Constitutional General appearance: Present: cooperative, no acute distress - EENT Eyes: Present: PERRLA - Neck Neck: Present: normal ROM. Absent: lymphadenopathy, rigidity - Respiratory Respiratory: bilateral: wheezing - Cardiovascular Rhythm: regular Heart sounds: normal: S1, S2 - Gastrointestinal General gastrointestinal: Present: soft. Absent: tenderness - Integumentary Integumentary: Present: normal, normal turgor - Psychiatric Psychiatric: Present: A&O x's 3, appropriate affect, intact judgment & insight - Labs CBC & Chem 7: 01/22/24 06:20 01/22/24 06:20 Labs: Abnormal Lab Results - Last 24 Hours (Table) 01/22/24 01/22/24 01/22/24 Range/Units 06:20 06:20 12:51 WBC 17.55 H (4.50-10.00) X 10*3/uL Hgb 16.6 H (12.0-15.0) g/dL Hct 49.5 H (37.2-46.3) % MCV 97.4 H (80.0-97.0) FL MCH 32.7 H (27.0-32.0) pg Immature Gran # 0.05 H (0.00-0.04) X 10*3/uL Neutrophils # 16.25 H (1.80-7.70) X 10*3/uL Eosinophils # 0 L (0.04-0.35) X 10*3/uL Chloride 95 L (96-109) mmol/L Carbon Dioxide 33.1 H (21.6-31.8) mmol/L BUN/Creatinine Ratio 37.86 H (12.00-20.00) Ratio Glucose 161 H (70-110) mg/dL POC Glucose (mg/dL) 128 H (70-110) mg/dL 01/22/24 01/22/24 01/23/24 Range/Units 17:20 20:57 05:40 WBC (4.50-10.00) X 10*3/uL Hgb (12.0-15.0) g/dL Hct (37.2-46.3) % MCV (80.0-97.0) FL MCH (27.0-32.0) pg Immature Gran # (0.00-0.04) X 10*3/uL Neutrophils # (1.80-7.70) X 10*3/uL Eosinophils # (0.04-0.35) X 10*3/uL Chloride (96-109) mmol/L Carbon Dioxide (21.6-31.8) mmol/L BUN/Creatinine Ratio (12.00-20.00) Ratio Glucose (70-110) mg/dL POC Glucose (mg/dL) 156 H 247 H 182 H (70-110) mg/dL Assessment and Plan (1) COPD exacerbation Current Visit: Yes Status: Acute Code(s): J44.1 - CHRONIC OBSTRUCTIVE PULMONARY DISEASE W (ACUTE) EXACERBATION SNOMED Code(s): 708498245 (2) Obstructive sleep apnea Current Visit: Yes Status: Acute Code(s): G47.33 - OBSTRUCTIVE SLEEP APNEA (ADULT) (PEDIATRIC) SNOMED Code(s): 63567506 (3) Hypertension Current Visit: Yes Status: Acute Code(s): I10 - ESSENTIAL (PRIMARY) HYPERTENSION SNOMED Code(s): 33730747 (4) Hyperlipemia Current Visit: Yes Status: Acute Code(s): E78.5 - HYPERLIPIDEMIA, UNSPECIFIED SNOMED Code(s): 30739317 Plan: Check CBC and CMP in the morning Possible discharge in the next 24 hours Patient seen and evaluate by nurse practitioner, physician in agreement with plan.
[2024-01-23 10:42] LABS: Basophils # (A) 0.01 X 10*3/uL (0.00-0.10); Basophils % (A) 0.1 %; Eosinophils # (A) 0 X 10*3/uL (0.04-0.35); Eosinophils % (A) 0 %; HCT 50.1 % (37.2-46.3); HGB 16.7 g/dL (12.0-15.0); Lymphocytes # (A) 0.86 X 10*3/uL (0.90-5.00); Lymphocytes % (A) 5.6 %; MCH 32.6 pg (27.0-32.0); MCHC 33.3 g/dL (32.0-37.0); MCV 97.9 FL (80.0-97.0); Mean Platelet Volume 10.3 FL (9.5-12.2); Monocytes # (A) 0.31 X 10*3/uL (0.20-1.00); NRBC Per 100 WBC 0 X 10*3/uL (0.00-0.01); Neutrophils # (A) 14.07 X 10*3/uL (1.80-7.70); Platelet Count 197 X 10*3/uL (140-440); RBC 5.12 X 10*6/uL (4.10-5.20); RDW 12.7 % (11.5-14.5)
[2024-01-23 11:28] LABS: BUN/Creat Ratio 45.33 Ratio (12.00-20.00); Blood Urea Nitrogen 27.2 mg/dL (9.0-27.0); Calcium 9.1 mg/dL (8.7-10.3); Carbon Dioxide 31.4 mmol/L (21.6-31.8); Chloride 95 mmol/L (96-109); Glucose 166 mg/dL (70-110); Potassium 4.1 mmol/L (3.5-5.5); Sodium 137 mmol/L (135-145)
--- NOTE | 2024-01-23 12:28 | P.PN ---
Subjective Progress Note Date: 01/23/24 The patient is seen today January 23, 2024 in follow-up on the regular medical floor. She is awake and alert in no acute distress. She is sitting up in bed. She is maintaining O2 saturations in the 90s on 2 L/min per nasal cannula. White count 15.3. Hemoglobin 16.7. Platelets 197. Sodium 137. Potassium 4.1. Bicarb 31. BUN 27. Creatinine 0.6. Glucose 166. She is continued on DuoNeb ventilations, Symbicort, Solu-Medrol. Antibiotics in the form of ceftriaxone. Heparin for DVT prophylaxis. NicoDerm patch in place. Objective - Vital Signs Vital signs: Vital Signs Temp 97.6 F 01/23/24 07:00 Pulse 56 L 01/23/24 07:00 Resp 18 01/23/24 07:00 BP 171/80 01/23/24 07:00 Pulse Ox 92 L 01/23/24 07:00 FiO2 Intake & Output 01/22/24 01/23/24 01/23/24 18:59 06:59 18:59 Intake Total 358 980 Balance 358 980 Intake: Oral 358 980 Other: # Voids 6 1 # Bowel Movements 1 - Exam GENERAL EXAM: Alert, pleasant 59-year-old female, on 2 L nasal cannula, comfortable in no apparent distress. HEAD: Normocephalic. EYES: Normal reaction of pupils, equal size. NOSE: Clear with pink turbinates. THROAT: No erythema or exudates. NECK: No masses, no JVD. CHEST: No chest wall deformity. LUNGS: Equal air entry with faint end expiratory wheeze, diminished. CVS: S1 and S2 normal with no audible murmur, regular rhythm. ABDOMEN: No hepatosplenomegaly, normal bowel sounds, no guarding or rigidity. SPINE: No scoliosis or deformity SKIN: No rashes CENTRAL NERVOUS SYSTEM: No focal deficits, tone is normal in all 4 extremities. EXTREMITIES: There is no peripheral edema. No clubbing, no cyanosis. Peripheral pulses are intact. - Labs CBC & Chem 7: 01/23/24 06:38 01/23/24 06:38 Labs: Abnormal Lab Results - Last 24 Hours (Table) 01/22/24 01/22/24 01/22/24 Range/Units 12:51 17:20 20:57 WBC (4.50-10.00) X 10*3/uL Hgb (12.0-15.0) g/dL Hct (37.2-46.3) % MCV (80.0-97.0) FL MCH (27.0-32.0) pg Immature Gran # (0.00-0.04) X 10*3/uL Neutrophils # (1.80-7.70) X 10*3/uL Lymphocytes # (0.90-5.00) X 10*3/uL Eosinophils # (0.04-0.35) X 10*3/uL Chloride (96-109) mmol/L BUN (9.0-27.0) mg/dL BUN/Creatinine Ratio (12.00-20.00) Ratio Glucose (70-110) mg/dL POC Glucose (mg/dL) 128 H 156 H 247 H (70-110) mg/dL 01/23/24 01/23/24 01/23/24 Range/Units 05:40 06:38 06:38 WBC 15.30 H (4.50-10.00) X 10*3/uL Hgb 16.7 H (12.0-15.0) g/dL Hct 50.1 H (37.2-46.3) % MCV 97.9 H (80.0-97.0) FL MCH 32.6 H (27.0-32.0) pg Immature Gran # 0.05 H (0.00-0.04) X 10*3/uL Neutrophils # 14.07 H (1.80-7.70) X 10*3/uL Lymphocytes # 0.86 L (0.90-5.00) X 10*3/uL Eosinophils # 0 L (0.04-0.35) X 10*3/uL Chloride 95 L (96-109) mmol/L BUN 27.2 H (9.0-27.0) mg/dL BUN/Creatinine Ratio 45.33 H (12.00-20.00) Ratio Glucose 166 H (70-110) mg/dL POC Glucose (mg/dL) 182 H (70-110) mg/dL Assessment and Plan Assessment: Acute COPD exacerbation, could be related to symptoms of upper respiratory tract infection as the patient has symptoms of URI and possible left otitis Acute hypoxic respiratory failure secondary to above currently on 2 L of O2 nasal cannula Morbid obesity Obstructive sleep apnea maintained on a BiPAP pressure of 12/8 cm of water Hypertension Hyperlipidemia Plan: The patient was seen and evaluated Medications and labs reviewed Transitioned to oral steroids Evaluate for possible home oxygen Educated regarding smoking cessation NicoDerm patch in place Continue antibiotics Heparin for DVT prophylaxis Probable discharge in the a.m. This patient was seen independently by the pulmonary nurse practitioner addressing pulmonary issues I have personally seen and examined the patient, performed the documentation and the assessment and plan as written. Number of minutes spent on the visit: 24.
[2024-01-23 12:29] LABS: Glucose,Whole Blood 155 mg/dL (70-110)
[2024-01-23 17:05] LABS: Glucose,Whole Blood 208 mg/dL (70-110)
[2024-01-23 20:24] LABS: Glucose,Whole Blood 219 mg/dL (70-110)
[2024-01-24 06:08] LABS: Glucose,Whole Blood 130 mg/dL (70-110)
[2024-01-24] MEDS: IBUPROFEN 800 MG TAB PO PRN (06:16)
[2024-01-24 08:04] VITALS: RESP 16
--- NOTE | 2024-01-24 08:28 | P.DS ---
Providers Date of admission: 01/20/24 10:54 Attending physician: Edward Reddy Consults: 01/19/24 15:54 Consult Physician Urgent Consulting Provider: Carole Kovacs Consult Reason/Comments: hypoxia Do you want consulting provider notified?: Yes Primary care physician: Edward Reddy Hospital Course: This is a discharge summary 59-year-old white female who came in with essentially with exacerbation of COPD chronic bronchitis. We had a long discussion regarding tobacco cessation. Pulmonology was consulted and we started appropriate steroid treatment with oxygen therapy. The patient was stabilized and might need home O2 on discharge we will check this prior to discharge. The patient is stable tolerating diet no voiding difficulties and breathing is now stable. Will follow-up in about 3 days Patient Condition at Discharge: Fair Plan - Discharge Summary Discharge Rx Participant: No New Discharge Prescriptions: New cefUROXime axetiL [Ceftin] 500 mg PO BID 1 Days #2 tab predniSONE [Deltasone] 40 mg PO DAILY #5 tab Nicotine 14Mg/24Hr Patch [Habitrol] 1 patch TRANSDERM DAILY #30 patch Nystatin 100,000 Unit/ml Susp [Mycostatin Oral Susp] 500,000 unit PO QID #140 ml Budesonide/Formoterol Fumarate [Budesonide-Formoterol 160-4.5] 1 puff INHALATION BID #10.2 gm Fluconazole [Diflucan] 100 mg PO DAILY 7 Days #7 tab Continue Rosuvastatin [Crestor] 10 mg PO HS Ibuprofen [Motrin] 800 mg PO TID PRN PRN Reason: Pain Budesonide/Glycopyr/Formoterol [Breztri Aerosphere Inhaler] 2 puff INHALATION RT-BID Albuterol Sulfate [Albuterol Sulfate Hfa] 2 puff PO RT-Q6H PRN PRN Reason: Shortness Of Breath HYDROcodone/APAP 7.5-325MG [Peck 7.5-325] 1 tab PO TID Bisoprolol-Hctz 5-6.25 mg [Ziac 5-6.25 MG] 1 tab PO DAILY Discharge Medication List Albuterol Sulfate [Albuterol Sulfate Hfa] 2 puff PO RT-Q6H PRN 01/19/24 [Hi story] Bisoprolol-Hctz 5-6.25 mg [Ziac 5-6.25 MG] 1 tab PO DAILY 01/19/24 [History] Budesonide/Glycopyr/Formoterol [Breztri Aerosphere Inhaler] 2 puff INHALATION RT-BID 01/19/24 [History] HYDROcodone/APAP 7.5-325MG [Peck 7.5-325] 1 tab PO TID 01/19/24 [History] Ibuprofen [Motrin] 800 mg PO TID PRN 01/19/24 [History] Rosuvastatin [Crestor] 10 mg PO HS 01/19/24 [History] Budesonide/Formoterol Fumarate [Budesonide-Formoterol 160-4.5] 1 puff INHALATION BID #10.2 gm 01/24/24 [Rx] Fluconazole [Diflucan] 100 mg PO DAILY 7 Days #7 tab 01/24/24 [Rx] Nicotine 14Mg/24Hr Patch [Habitrol] 1 patch TRANSDERM DAILY #30 patch 01/24/24 [Rx] Nystatin 100,000 Unit/ml Susp [Mycostatin Oral Susp] 500,000 unit PO QID #140 ml 01/24/24 [Rx] cefUROXime axetiL [Ceftin] 500 mg PO BID 1 Days #2 tab 01/24/24 [Rx] predniSONE [Deltasone] 40 mg PO DAILY #5 tab 01/24/24 [Rx] Follow up Appointment(s)/Referral(s): Carole Kovacs MD [STAFF PHYSICIAN] - 1 Week Edward Reddy MD [Primary Care Provider] - 3 Days Discharge Disposition: HOME SELF-CARE
[2024-01-24 10:30] LABS: HCT 49.4 % (37.2-46.3); HGB 16.4 g/dL (12.0-15.0); MCH 31.9 pg (27.0-32.0); MCHC 33.2 g/dL (32.0-37.0); MCV 96.1 FL (80.0-97.0); Mean Platelet Volume 10.5 FL (9.5-12.2); NRBC Per 100 WBC 0 X 10*3/uL (0.00-0.01); Platelet Count 191 X 10*3/uL (140-440); RBC 5.14 X 10*6/uL (4.10-5.20); RDW 12.7 % (11.5-14.5); WBC 17.49 X 10*3/uL (4.50-10.00)
[2024-01-24 10:40] LABS: ALT 7 U/L (8-44); AST 13 U/L (13-35); Albumin 3.7 g/dL (3.8-4.9); Albumin/Globulin Ratio 1.54 Ratio (1.60-3.17); Alkaline Phosphatase 65 U/L (41-126); BUN/Creat Ratio 33.88 Ratio (12.00-20.00); Blood Urea Nitrogen 27.1 mg/dL (9.0-27.0); Calcium 8.9 mg/dL (8.7-10.3); Carbon Dioxide 33.3 mmol/L (21.6-31.8); Chloride 95 mmol/L (96-109); Globulin 2.4 g/dL (1.6-3.3); Glucose 131 mg/dL (70-110); Potassium 4.4 mmol/L (3.5-5.5); Sodium 137 mmol/L (135-145); Total Bilirubin 0.5 mg/dL (0.3-1.2); Total Protein 6.1 g/dL (6.2-8.2)
[2024-01-24 12:38] LABS: Glucose,Whole Blood 181 mg/dL (70-110)
--- NOTE | 2024-01-24 13:01 | P.PN ---
Subjective Progress Note Date: 01/24/24 The patient is seen today January 23, 2024 in follow-up on the regular medical floor. She is awake and alert in no acute distress. She is sitting up in bed. She is maintaining O2 saturations in the 90s on 2 L/min per nasal cannula. White count 15.3. Hemoglobin 16.7. Platelets 197. Sodium 137. Potassium 4.1. Bicarb 31. BUN 27. Creatinine 0.6. Glucose 166. She is continued on DuoNeb ventilations, Symbicort, Solu-Medrol. Antibiotics in the form of ceftriaxone. Heparin for DVT prophylaxis. NicoDerm patch in place. The patient is seen today January 24, 2024 in follow-up on the regular medical fl oor. She is currently sitting up in bed. Awake and alert in no acute distress. She is maintaining good O2 saturations in the 90s on 2 L/min per nasal cannula. She is utilizing her home CPAP machine at night. She remains on DuoNeb ventilations, Symbicort, prednisone taper. Antibiotics in the form of ceftriaxone. Heparin for DVT prophylaxis. NicoDerm patch in place. Remains on Diflucan. White count 17.4. Hemoglobin 16.4. Platelets 191. Sodium 137. Potassium 4.4. Bicarb 33. BUN 27. Creatinine 0.8. Glucose 131. Objective - Vital Signs Vital signs: Vital Signs Temp 98.2 F 01/24/24 07:00 Pulse 80 01/24/24 08:57 Resp 16 01/24/24 07:00 BP 157/72 01/24/24 07:00 Pulse Ox 91 L 01/24/24 09:20 FiO2 Intake & Output 01/23/24 01/24/24 01/24/24 18:59 06:59 18:59 Intake Total 980 118 Balance 980 118 Intake: Oral 980 118 Other: # Voids 3 1 - Exam GENERAL EXAM: Alert, pleasant 59-year-old female, sitting up in bed, on 2 L n josep cannula, comfortable in no apparent distress. HEAD: Normocephalic. EYES: Normal reaction of pupils, equal size. NOSE: Clear with pink turbinates. THROAT: No erythema or exudates. NECK: No masses, no JVD. CHEST: No chest wall deformity. LUNGS: Equal air entry with faint end expiratory wheeze, diminished. CVS: S1 and S2 normal with no audible murmur, regular rhythm. ABDOMEN: No hepatosplenomegaly, normal bowel sounds, no guarding or rigidity. SPINE: No scoliosis or deformity SKIN: No rashes CENTRAL NERVOUS SYSTEM: No focal deficits, tone is normal in all 4 extremities. EXTREMITIES: There is no peripheral edema. No clubbing, no cyanosis. Peripheral pulses are intact. - Labs CBC & Chem 7: 01/24/24 06:53 01/24/24 06:53 Labs: Abnormal Lab Results - Last 24 Hours (Table) 01/23/24 01/23/24 01/24/24 Range/Units 17:03 20:22 06:05 WBC (4.50-10.00) X 10*3/uL Hgb (12.0-15.0) g/dL Hct (37.2-46.3) % Chloride (96-109) mmol/L Carbon Dioxide (21.6-31.8) mmol/L BUN (9.0-27.0) mg/dL BUN/Creatinine Ratio (12.00-20.00) Ratio Glucose (70-110) mg/dL POC Glucose (mg/dL) 208 H 219 H 130 H (70-110) mg/dL ALT (8-44) U/L Total Protein (6.2-8.2) g/dL Albumin (3.8-4.9) g/dL Albumin/Globulin Ratio (1.60-3.17) Ratio 01/24/24 01/24/24 01/24/24 Range/Units 06:53 06:53 12:36 WBC 17.49 H (4.50-10.00) X 10*3/uL Hgb 16.4 H (12.0-15.0) g/dL Hct 49.4 H (37.2-46.3) % Chloride 95 L (96-109) mmol/L Carbon Dioxide 33.3 H (21.6-31.8) mmol/L BUN 27.1 H (9.0-27.0) mg/dL BUN/Creatinine Ratio 33.88 H (12.00-20.00) Ratio Glucose 131 H (70-110) mg/dL POC Glucose (mg/dL) 181 H (70-110) mg/dL ALT 7 L (8-44) U/L Total Protein 6.1 L (6.2-8.2) g/dL Albumin 3.7 L (3.8-4.9) g/dL Albumin/Globulin Ratio 1.54 L (1.60-3.17) Ratio Assessment and Plan Assessment: Acute COPD exacerbation, could be related to symptoms of upper respiratory tract infection as the patient has symptoms of URI and possible left otitis Acute hypoxic respiratory failure secondary to above currently on 2 L of O2 nasal cannula Morbid obesity Obstructive sleep apnea maintained on a BiPAP pressure of 12/8 cm of water Hypertension Hyperlipidemia Plan: The patient was seen and evaluated Medications and labs reviewed Evaluate for possible home oxygen Educated regarding smoking cessation Educated regarding the cautions of not smoking near oxygen Continue her home Breztri, albuterol HFA Complete a prednisone taper Follow-up in our office 1 week post discharge This patient was seen independently by the pulmonary nurse practitioner addressing pulmonary issues I have personally seen and examined the patient, performed the documentation and the assessment and plan as written. Number of minutes spent on the visit: 23.
[2024-01-24 15:22] VITALS: BP 159/88; PULSE 45; TEMP 97.6
== END 2024-01-24 16:32 | disposition home or self-care (01) | DRG 190 ==
LOC: EC 12:03 → 6NMEDSUR 15:56 → OBSVTOIN 01-20 10:54
PROVIDERS: ADMIT Family Medicine; ATTEND Family Medicine
DX: J44.0 Chronic obstructive pulmonary disease with (acute) lower respiratory infection (principal); J96.01 Acute respiratory failure with hypoxia; E87.1 Hypo-osmolality and hyponatremia; J44.1 Chronic obstructive pulmonary disease with (acute) exacerbation; D75.1 Secondary polycythemia; E66.01 Morbid (severe) obesity due to excess calories; I10 Essential (primary) hypertension; E78.5 Hyperlipidemia, unspecified; Z28.310 Unvaccinated for COVID-19; G47.33 Obstructive sleep apnea (adult) (pediatric); H66.92 Otitis media, unspecified, left ear; G89.29 Other chronic pain; M54.9 Dorsalgia, unspecified; M54.30 Sciatica, unspecified side; F17.210 Nicotine dependence, cigarettes, uncomplicated; Z71.6 Tobacco abuse counseling; Z79.51 Long term (current) use of inhaled steroids; Z79.899 Other long term (current) drug therapy
CPT/HCPCS: 36415; 71046; 80048; 80053; 80061; 83036; 84484; 85025; 85027; 85379; 87636; 87651; 93005; 94640; 94760; 99285

== ENCOUNTER → 2024-06-20 | Outpatient (CLI) | payer MEDICARE, OTHER ==
--- NOTE | 2024-06-20 14:10 | FL ---
EXAMINATION TYPE: FL barium swallow w video DATE OF EXAM: 06/20/2024 CLINICAL HISTORY: 59-year-old female R1 3.10, unspecified Dysphagia. Patient with COPD and sensation of food sticking in the throat. TECHNIQUE: Deglutition study is performed utilizing thin liquid barium, barium pudding, and barium c oated cracker. COMPARISON: None. Total fluoroscopy time 2 minutes 26 seconds. Total images: None. Real-time fluoroscopy support was provided to speech pathology. Total DAP: 50 mGycm2. FINDINGS: There are mild vallecular residuals noted. Occasional transient penetration which improved after chin tuck maneuver. There is no other penetration or aspiration Additional AP imaging shows delayed clearance of solids from the resident esophagus and some intraeso phageal reflux. IMPRESSION: 1. Occasional transient penetration of thin liquids improved after chin tuck maneuver. No other penet ration or aspiration seen. 2. There may be underlying esophageal dysmotility. If further evaluation is desired, conventional eso phagram may be helpful. Please refer to speech therapist notes for further details if necessary. [facility], , 06/20/2024 2:07 PM
== END | disposition home or self-care (01) ==
LOC: RADFLMAIN 10:47
PROVIDERS: ATTEND Otolaryngology
CPT/HCPCS: 74230

== ENCOUNTER → 2024-10-01 | Outpatient (CLI) | payer MEDICARE, OTHER ==
--- NOTE | 2024-10-01 17:13 | CA ---
Transthoracic Echo Report Name: Kelly Rosa Age: 59 Gender: F : 1965 Exam Date: 10/01/2024 13:48 Exam Location: [place] [facility] Ht (in): 60 Wt (lb): 224 Ordering Physician: Edward Reddy MD Attending/Referring Phys: Edward Reddy MD National Secretary Taylor Matt, [facility] Procedure CPT: Indications: I50.22 CHRONIC SYSTOLIC (CONGESTIVE) HEART FAILURE Cardiac Hx: COPD Technical Quality: Fair Contrast 1: Total Dose (mL): Contrast 2: Total Dose (mL): MEASUREMENTS (Male / Female) Normal Values 2D ECHO LV Diastolic Diameter PLAX 3.7 cm 4.2 - 5.9 / 3.9 - 5.3 cm LV Systolic Diameter PLAX 2.4 cm IVS Diastolic Thickness 1.0 cm 0.6 - 1.0 / 0.6 - 0.9 cm LVPW Diastolic Thickness 1.0 cm 0.6 - 1.0 / 0.6 - 0.9 cm LV Relative Wall Thickness 0.5 RV Internal Dim ED PLAX 4.6 cm LVOT Diameter 1.7 cm LA Systolic Diameter LX 4.0 cm 3.0 - 4.0 / 2.7 - 3.8 cm LV Diastolic Volume MOD BP 31.0 cm??? 67 - 155 / 56 - 104 cm??? LV Systolic Volume MOD BP 9.8 cm??? 22 - 58 / 19 - 49 cm??? LV Ejection Fraction MOD BP 68.6 % >= 55 % LV Cardiac Index MOD BP 876.7 cm???/min???m??? LV Diastolic Volume MOD 4C 25.5 cm??? LV Systolic Volume MOD 4C 7.6 cm??? LV Ejection Fraction MOD 4C 70.3 % LV Cardiac Index MOD 4C 738.7 cm???/min???m??? LV Diastolic Length 4C 5.5 cm LV Systolic Length 4C 4.7 cm LV Diastolic Volume MOD 2C 34.8 cm??? LV Systolic Volume MOD 2C 12.0 cm??? LV Ejection Fraction MOD 2C 65.5 % LV Cardiac Index MOD 2C 940.6 cm???/min???m??? LV Diastolic Length 2C 6.0 cm LV Systolic Length 2C 5.0 cm LA Volume 102.5 cm??? 18 - 58 / 22 - 52 cm??? LA Volume Index 48.0 cm???/m??? 16 - 28 cm???/m??? M-MODE Aortic Root Diameter MM 1.8 cm LA Systolic Diameter MM 3.9 cm LA Ao Ratio MM 2.1 AV Cusp Separation MM 1.2 cm DOPPLER AV Peak Velocity 222.6 cm/s AV Peak Gradient 19.8 mmHg AV Mean Velocity 176.9 cm/s AV Mean Gradient 13.2 mmHg AV Velocity Time Integral 54.5 cm LVOT Peak Velocity 97.9 cm/s LVOT Peak Gradient 3.8 mmHg LVOT Velocity Time Integral 27.5 cm LVOT Stroke Volume 63.3 cm??? LVOT Stroke Volume Index 32.3 ml/m??? LVOT Cardiac Index 2609.1 cm???/min???m??? AV Area Cont Eq vti 1.2 cm??? AV Area Cont Eq pk 1.0 cm??? MV Peak Velocity 132.0 cm/s MV Peak Gradient 7.0 mmHg MV Mean Velocity 81.4 cm/s MV Mean Gradient 3.2 mmHg MV Velocity Time Integral 50.3 cm MV Area PHT 2.4 cm??? Mitral E Point Velocity 124.1 cm/s Mitral A Point Velocity 132.3 cm/s Mitral E to A Ratio 0.9 MV Deceleration Time 313.3 ms TR Peak Velocity 448.2 cm/s TR Peak Gradient 97.2 mmHg Right Atrial Pressure 20.0 mmHg Pulmonary Artery Systolic Pressu 100.4 mmHg Right Ventricular Systolic Press 117.2 mmHg FINDINGS Left Ventricle Left ventricular ejection fraction is estimated at 55-60 %. Mildly increased septal wall thickness. D-Shaped Ventricle. Right Ventricle Severe right ventricular dilatation. Severe pulmonary hypertension. Right Atrium Mild right atrial dilatation. Left Atrium Mildly increased left atrial diameter. Severely increased left atrial volume. Mildly increased left atrial area. Mitral Valve Mitral valve thickened. Thickened mitral valve without stenosis. Mitral annular calcification. Mild mitral regurgitation. Aortic Valve Aortic valve not well visualized. Mild aortic stenosis with a peak gradient of 20 mmHg and a mean gradient of 13 mmHg. No aortic regurgitation. Tricuspid Valve Annular dilatation of the tricuspid valve. [id number] tricuspid regurgitation. No tricuspid stenosis. Pulmonic Valve Structurally normal pulmonic valve. Mild pulmonic regurgitation. No pulmonic stenosis. Pericardium No pericardial or pleural effusion. Aorta Normal size aortic root and proximal ascending aorta. CONCLUSIONS Normal LV function Severe dilated dictation of the right ventricle Severe pulmonary hypertension Mild aortic stenosis Moderate to severe tricuspid regurgitation Patient was advised to go to the ER at the technologist refused to do. Previewed by: Dr. Gt Velarde MD (Electronically Signed) Final Date: 01 October 2024 17:12
== END | disposition home or self-care (01) ==
LOC: RADECHMAIN 13:28
PROVIDERS: ATTEND Family Medicine
DX: I50.22 Chronic systolic (congestive) heart failure (principal); I27.20 Pulmonary hypertension, unspecified; I08.2 Rheumatic disorders of both aortic and tricuspid valves
CPT/HCPCS: 93306

== ENCOUNTER → 2024-11-06 | Outpatient (CLI) | payer MEDICARE, OTHER ==
[2024-11-06 16:05] VITALS: BP 132/59; PULSE 67; RESP 18; TEMP 97.7
--- NOTE | 2024-11-06 16:47 | P.PROGSL ---
Subjective DATE: 11/06/2024 FOLLOW UP VISIT. Patient with obstructive sleep apnea hypopnea syndrome return to sleep center for follow-up visit. Information from previous visit have been reviewed. Patient is using PAP equipment every night for the whole night, getting PAP supplies in time. Patient sometimes close water condensation in the tube and feeling some smell from the machine. [place] sleepiness scale is 4, which is normal. I checked information from PAP unit. BPAP unit pressure 12/8 cm H2O. Usage is 100% for more then 4 hours, average 8.6 hours per night. Leak is increased to 36 l/m. Apnea Hypopnea Index is 0.2, which is normal. Patient feels dryness in the mouth. She is using nasal mask. MEDICATIONS rosuvastatin 10 mg once a day, bisoprolol, hydrochlorothiazide once a day, furosemide 40 mg once a day, hydrocodone 7.5-325 mg once a day, albuterol. During physical exam: GENERAL: A pleasant patient without any distress. VITAL SIGNS: Please see below, weight is 204.2 lbs. HEENT: PERRLA, EOMI.low position of soft palate, Mallapati 3 . NECK: Supple. No JVD. LUNGS: Clear to percussion and to auscultation. Good air exchange. No wheezing or rhonchi. HEART: S1, S2 regular. ABDOMEN: Soft and nontender.[] EXTREMITIES: No clubbing or cyanosis. WEATHERIZATION OPERATIONS MANAGER: Awake, alert, and oriented x3. No focal deficit. Impressions: 1. Obstructive sleep apnea-hypopnea syndrome. Patient demonstrated great compliance with treatment, benefiting from treatment. 2. Asthma. 3. Low back problem. 4. History of sciatic nerve problems on the right side. Temperature and humidifier was adjusted down from 4 to 3. Temperature in the heated tube was adjusted from 60 degree to 80 degree. Plan: 1. Continue using PAP equipment every night for the whole night. 2. Sleep hygiene with regular time in bed for at least 7.5-8 hours 3. PAP unit should stay lower then position of the head. 4. Advised patient to remove all remaining water from humidifier canister daily and make it dry after each usage. Refill canister with fresh distilled water before each usage. 5. Watching weight. 6. Precautions related to driving. No driving if feel any sleepiness. 7. I will maintain prescription for PAP supplies including mask, tube, filters. Prescription for chinstrap. 8. Follow up visit in 8 months or earlier if patient has any problems. Thank you very much for allowing me to participate in the management of your patient. Omar Kang MD, PhD, FAASM. Diplomat of [place] [employer], Sleep Medicine Board by [place] [employer] [facility] [place] Objective - Vital Signs Vital Signs: Vital Signs Temp 97.7 F 11/06/24 16:01 Pulse 67 11/06/24 16:01 Resp 18 11/06/24 16:01 BP 132/59 11/06/24 16:01 Pulse Ox 90 L 11/06/24 16:01 FiO2 Intake & Output 11/05/24 11/06/24 11/06/24 18:59 06:59 18:59 Weight 92.59 kg Home Medications: Home Medications Medication Instructions Recorded Confirmed Type Albuterol Sulfate [Albuterol 2 puff INHALATION RT-Q6H PRN 01/19/24 11/06/24 History Sulfate Hfa] Bisoprolol-Hctz 5-6.25 mg [Ziac 1 tab PO DAILY 01/19/24 11/06/24 History 5-6.25 MG] HYDROcodone/APAP 7.5-325MG [[place] 1 tab PO Q6H PRN 01/19/24 11/06/24 History 7.5-325] Ibuprofen [Motrin] 800 mg PO TID PRN 01/19/24 11/06/24 History Rosuvastatin [Crestor] 10 mg PO HS 01/19/24 10/02/24 History Fluticasone/Umeclidin/Vilanter 1 puff INHALATION RT-DAILY 10/02/24 10/02/24 History [Trelegy Ellipta 100-62.5-25] Budesonide-Formot 160-4.5 Mcg 1 puff INHALATION RT-BID #1 each 10/04/24 11/06/24 Rx [Symbicort 160-4.5 Mcg Inhaler] Furosemide [Lasix] 40 mg PO DAILY #30 tab 10/04/24 11/06/24 Rx Nicotine 14Mg/24Hr Patch [Habitrol] 1 patch TRANSDERM DAILY #30 patch 10/04/24 Rx Potassium Chloride ER [K-Dur 20] 20 meq PO DAILY #30 tab 10/04/24 11/06/24 Rx
== END ==
LOC: 3 N SLEEP 15:30
PROVIDERS: ATTEND Internal Medicine
DX: G47.33 Obstructive sleep apnea (adult) (pediatric) (principal); J45.909 Unspecified asthma, uncomplicated; Z87.39 Personal history of other diseases of the musculoskeletal system and connective tissue
CPT/HCPCS: 99212